=== PATIENT | male | born 1995 | race Caucasian/White ===

== ENCOUNTER 2017-05-23 23:54 | Emergency (ER) | payer SELFPAY ==
[2017-05-24 02:47] VITALS: BP 110/65
--- NOTE | 2017-05-24 02:53 | ED ---
Dom Bourgeois Tecjoon, scribed for Heri Valle MD on 05/24/17 at 0036 . Substance Abuse/Use - HPI Summary HPI Summary: This patient is a 22 year old male BIBA to [facility] with a chief complaint of heroin overdose [employer]. Patient took heroin for the first time through snorting and overdosed. Patient was found by family, who notified EMS and performed CPR. Patient was given narcan and at time of exam, is alert and oriented x3. Patient currently states he is not in any pain, except for chest pain post CPR. - History Of Current Complaint Chief Complaint: EDOverdose Stated Complaint: OVERDOSE Hx Obtained From: Patient Onset/Duration of Drug/ETOH Abuse: Minutes Ingestion History: Type/Name Of Drug - heroin Overdose Characteristics: Inhalation Severity Initially: Severe Severity Currently: None Aggravating Factor(s): Nothing Alleviating Factor(s): Nothing - Allergies/Home Medications Allergies/Adverse Reactions: Allergies Allergy/AdvReac Type Severity Reaction Status Date / Time No Known Allergies Allergy Verified 05/24/17 01:44 PMH/Surg Hx/FS Hx/Imm Hx Previously Healthy: Yes Opthamlomology History: Denies: Hx Legally Blind EENT History: Denies: Hx Deafness Infectious Disease History: No Infectious Disease History: Denies: Traveled Outside the [place] in Last 30 Days - Family History Known Family History: Negative: Diabetes - Social History Lives: With Family Alcohol Use: Daily Hx Substance Use: Yes Substance Use Type: Reports: Heroin Hx Tobacco Use: Yes Smoking Status (MU): Heavy Every Day Tobacco Smoker Review of Systems Negative: Fever Positive: Chest Pain All Other Systems Reviewed And Are Negative: Yes Physical Exam - Summary Physical Exam Summary: Appearance: Well-appearing, Well-nourished Skin: Warm Eyes: Droop of right eyelid at baseline ENT: Normal Neck: Supple, nontender Respiratory: Mild chest wall tenderness, no flail chest. Normal breath sounds. No crepitus. Cardiovascular: Normal S1, S2. No murmurs. Normal distal pulses in tibial and radial bilaterally. Abdomen: Soft, nontender Musculoskeletal: Normal, Strength/ROM Intact Neurological: Normal, A&Ox3 Psychiatric: Normal Triage Information Reviewed: Yes Vital Signs On Initial Exam: Initial Vitals Temp Pulse Resp BP Pulse Ox 97.6 F 95 14 135/90 97 02/02/18 23:58 05/23/17 23:58 05/23/17 23:58 05/23/17 23:58 05/23/17 23:58 Vital Signs Reviewed: Yes Diagnostics - Vital Signs Vital Signs Temp Pulse Resp BP Pulse Ox 05/23/17 23:58 97.6 F 95 14 135/90 97 - Laboratory Lab Statement: Any lab studies that have been ordered have been reviewed, and results considered in the medical decision making process. Course/Dx - Course Assessment/Plan: vital signs improved, pt feels well, maintaining airway, converseatinoal, agrees to discontinue drug use. No episodes of hypoxia, instructed to fu with pmd. agrees to and understands dc isntructions. - Diagnoses Provider Diagnoses: Accidental overdose of heroin Discharge - Discharge Plan Condition: Improved Disposition: HOME Patient Education Materials: Narcotic Abuse (ED) Referrals: [facility] [Provider Group] No Primary Care Phys,[facility]OPCP [Primary Care Provider] - Additional Instructions: PLEASE AVOID USE OF NARCOTIC DRUGS PLEASE RETURN IMMEDIATELY TO THE ER IF YOU HAVE ANY WORSENING OR CONCERNING SYMPTOMS PLEASE MAKE AN APPOINTMENT TO BE SEEN BY YOUR PRIMARY CARE DOCTOR WITHIN 1 WEEK The documentation as recorded by the Dom escobedo Tecjoon accurately reflects the service I personally performed and the decisions made by me, Heri Valle MD.
--- NOTE | 2017-05-24 13:03 | RAD ---
INDICATION: Chest pain after CPR COMPARISON: Similar chest x-ray dated October 16, 2010 TECHNIQUE: PA and lateral views of the chest were obtained. FINDINGS: The heart and mediastinum are normal in size and contour. The lungs are grossly clear. There is no evidence of large pleural effusion. Incidentally noted is an azygos lobe fissure overlying the right lung apex. No sternal or displaced rib fractures are identified. There is no radiographic evidence of free air beneath the diaphragm IMPRESSION: NO ACUTE CHEST ABDOMEN ON THESE.
== END 2017-05-24 03:05 | disposition home or self-care (01) ==
LOC: ED 23:54
DX: T40.1X1A Poisoning by heroin, accidental (unintentional), initial encounter (principal); Y92.9 Unspecified place or not applicable; R07.9 Chest pain, unspecified; F17.210 Nicotine dependence, cigarettes, uncomplicated
CPT/HCPCS: 71046; 93005; 99285